=== PATIENT | female | born 1940 | race Caucasian/White ===

== ENCOUNTER → 2016-10-15 | Outpatient (CLI) | payer MEDICARE, OTHER ==
[~2016-10-15] MED LIST: CALTRATE-600 D600 MG PO; COLACE-DPS100 MG PO; COUMADIN DPS3 MG PO; COUMADIN6 MG PO; FLEXERIL DPS5 MG PO; HYDROCODON-ACE1 EAC6 PO; IMITREX DPS100 MG PO; LASIX DPS20 MG PO; LIPITOR DPS10 MG PO; MULTAQ400 MG PO; PERCOCET 5 DPS1 TAB PO; RESTORIL DPS30 MG PO; XANAX DPS0.25 MG PO; ZANTAC DPS150 MG PO; ZEBETA5 MG PO
== END | disposition home or self-care (01) ==
LOC: RAD.S 08:19
DX: M25.511 Pain in right shoulder (principal); M25.512 Pain in left shoulder